=== PATIENT | male | born 2000 | race Caucasian/White ===

== ENCOUNTER 2022-11-19 14:14 | Outpatient (OUT) | payer OTHER, SELFPAY ==
--- NOTE | 2022-11-19 14:33 | XR_ITS ---
The [address] [address] Patient Name: ADÁN CARR MRN: [id number] date: 2000 Sex: M Assigned Patient Location: RAD Current Patient Location: RAD Accession/Order Number: [id number] Exam Date: 11/19/2022 14:33 Report Date: 11/19/2022 17:52 At the request of: MARIA L ABAD Procedure: XR ankle RT min 3V PROCEDURE: XR ankle RT min 3V, XR foot RT min 3V HISTORY: RIGHT ANKLE PAIN ; chronic right lateral ankle pain COMPARISON: XR ankle right 09/11/2022 FINDINGS: BONES:Persistent small lucency along lateral margin of talar dome. Otherwise no fracture, dislocation, or significant joint space narrowing. SOFT TISSUES:No visible soft tissue swelling. EFFUSION:None visible. OTHER: Negative. XR/XR ankle RT min 3V IMPRESSION: 1. Persistent lucency suspected to represent an osteochondral defect along lateral margin of the talar dome. Consider MRI for further evaluation. Electronically authenticated by: MONI PIKE Date: 11/19/2022 17:52
--- NOTE | 2022-11-19 14:33 | XR_ITS ---
The [address] [address] Patient Name: ADÁN CARR MRN: [id number] date: 2000 Sex: M Assigned Patient Location: RAD Current Patient Location: RAD Accession/Order Number: [id number] Exam Date: 11/19/2022 14:33 Report Date: 11/19/2022 17:52 At the request of: MARIA L ABAD Procedure: XR foot RT min 3V PROCEDURE: XR ankle RT min 3V, XR foot RT min 3V HISTORY: RIGHT ANKLE PAIN ; chronic right lateral ankle pain COMPARISON: XR ankle right 09/11/2022 FINDINGS: BONES:Persistent small lucency along lateral margin of talar dome. Otherwise no fracture, dislocation, or significant joint space narrowing. SOFT TISSUES:No visible soft tissue swelling. EFFUSION:None visible. OTHER: Negative. XR/XR foot RT min 3V IMPRESSION: 1. Persistent lucency suspected to represent an osteochondral defect along lateral margin of the talar dome. Consider MRI for further evaluation. Electronically authenticated by: MONI PIKE Date: 11/19/2022 17:52
== END 2022-11-19 14:15 | disposition home or self-care (01) ==
PROVIDERS: Visit Provider Podiatrist Foot & Ankle Surgery
DX: S93.491A Sprain of other ligament of right ankle, initial encounter (principal); S92.144A Nondisplaced dome fracture of right talus, initial encounter for closed fracture
CPT/HCPCS: 73610; 73630

== ENCOUNTER 2023-01-14 23:57 | Emergency (ER) | payer SELFPAY ==
[2023-01-14 23:59] VITALS: BP 156/93; PULSE 119; RESP 18; TEMP 36.9; O2SAT 98; BMI 43.6
--- NOTE | 2023-01-15 00:22 | ED.NAVMDI1 ---
HPI - Nausea/Vomiting/Diarrhea General Chief complaint: Nausea/Vomiting/Diarrhea Stated complaint: VOMITTING Time Seen by Provider: 01/15/23 00:18 Source: patient Mode of arrival: walk-in Limitations: no limitations History of Present Illness HPI Narrative: abdominal pain on and off for the past month. Points to the epigastric area and the LUQ as the site of the pain. Mother states pain triggered after eating. Was seen at [facility] [address] of the abdomen which mother states demonstrated a fatty liver. Pain again tonight with vomiting. Was prescribed Pepcid and zofran 2 days ago at [facility] which he states he has been taking. The pain is easing up again. No fever. States he has been passing his bowels MD elicited complaint: Reports nausea, vomiting and abdominal pain Related Data Allergies Allergy/AdvReac Type Severity Reaction Status Date / Time No Known Drug Allergies Allergy Verified 01/15/23 00:05 Review of Systems ROS Status of ROS 10 or more systems reviewed and unremarkable except as noted in history and below Exam Constitutional Vital Signs, click to edit/add: Last Vital Signs Temp 98.5 F 01/14/23 23:59 Pulse 119 H 01/14/23 23:59 Resp 18 01/14/23 23:59 BP 156/93 H 01/14/23 23:59 Pulse Ox 98 01/14/23 23:59 O2 Del Method Room Air 01/14/23 23:59 Common normals: no apparent distress, oriented x3, healthy appearing, alert and well nourished Eye Common normals: PERRL, EOMs intact bilaterally and conjunctivae normal Respiratory Common normals: normal respiratory effort, no retractions, no use of accessory muscles and clear to auscultation bilaterally Cardio Common normals: regular rate, regular rhythm, S1 normal heart sound and S2 normal heart sound GI Common normals: Normal to inspection, nondistended, normoactive bowel sounds present, soft to palpation and non-tender Extremity Common normals: normal to inspection and full ROM Neuro Common normals: oriented x3, CN's II-XII intact bilaterally, moves all extremities and no focal motor deficits Psych Appearance: grossly normal Course Vital Signs Vital signs: Vital Signs Temperature 98.5 F 01/14/23 23:59 Pulse Rate 119 H 01/14/23 23:59 Respiratory Rate 18 01/14/23 23:59 Blood Pressure 156/93 H 01/14/23 23:59 Pulse Oximetry 98 01/14/23 23:59 Oxygen Delivery Method Room Air 01/14/23 23:59 Temperature 98.5 F 01/14/23 23:59 Pulse Rate 119 H 01/14/23 23:59 Respiratory Rate 18 01/14/23 23:59 Blood Pressure 156/93 H 01/14/23 23:59 Pulse Oximetry 98 01/14/23 23:59 Oxygen Delivery Method Room Air 01/14/23 23:59 MDM - Nausea/Vomiting/Diarrhea MDM Narrative Medical decision making narrative: patient presents complaining of abdominal pain on and off for the past month. Pain again tonight associated with vomiting. No fever. CT a couple of days ago at [facility] demonstrated fatty liver. Exam today with mild epigastric and LUQ tenderness. No guarding. labs tonight with elevated WBC from vomiting. He is afebrile. LFTs with mild elevation of ALT which is equivocal to lab performed 2days ago at [facility] and likely related to his fatty liver. Patient's pain since arrival here is mild. Treated with zofran and bentyl and discharged home to follow up with his family doctor tomorrow where he is scheduled to be seen Lab Data Labs: Lab Results 01/15/23 Range/Units 00:10 WBC 15.7 H (4.0-11.0) 10^3/uL RBC 5.30 (4.70-6.10) 10^6/uL Hgb 16.0 (14.0-18.0) g/dL Hct 48.0 (42.0-54.0) % MCV 90.6 (80.0-94.0) fL MCH 30.2 (25.9-34.0) pg MCHC 33.3 (29.9-35.2) g/dL RDW 12.7 (11.0-15.0) % Plt Count 300 (150-450) 10^3/uL MPV 11.2 (9.5-13.5) fL Neut % (Auto) 64.5 (43.0-75.0) % Lymph % (Auto) 27.0 (20.5-60.0) % Hutchinson % (Auto) 5.8 (1.7-12.0) % Eos % (Auto) 1.7 (0.9-7.0) % Baso % (Auto) 0.6 (0.2-2.0) % Neut # (Auto) 10.1 H (1.4-6.5) 10^3/uL Lymph # (Auto) 4.2 H (1.2-3.8) 10^3/uL Hutchinson # (Auto) 0.9 H (0.3-0.8) 10^3/uL Eos # (Auto) 0.3 (0.0-0.7) 10^3/uL Baso # (Auto) 0.1 (0.0-0.1) 10^3/uL Abs Immat Gran (auto) 0.06 H (0.00-0.03) 10^3/uL Imm/Tot Granulo (auto) 0.4 (0.0-0.5) % Sodium 138 (136-145) mmol/L Potassium 3.6 (3.5-5.1) mmol/L Chloride 104 (98-107) mmol/L Carbon Dioxide 24.2 (21.0-32.0) mmol/L Anion Gap 13.4 BUN 25.0 H (7.0-18.0) mg/dL Creatinine 1.06 (0.70-1.30) mg/dL Est GFR ( Amer) >60 (>=60) Est GFR (Non-Af Amer) >60 (>=60) BUN/Creatinine Ratio 23.6 Glucose 116 H (74-106) mg/dL Lactate 1.3 (0.4-2.0) mmol/L Calcium 9.1 (8.5-10.1) mg/dL Total Bilirubin 0.5 (0.2-1.0) mg/dL AST 34 (15-37) U/L ALT 105 H (16-63) U/L Alkaline Phosphatase 78 (46-116) U/L Troponin I High Sens <4.0 L (4.0-76.1) pg/mL Total Protein 8.4 H (6.4-8.2) g/dL Albumin 3.9 (3.4-5.0) g/dL Globulin 4.5 g/dL Albumin/Globulin Ratio 0.9 Lipase 106.0 (73.0-393.0) U/L Discharge Plan Discharge Chief Complaint: Nausea/Vomiting/Diarrhea Clinical Impression: Abdominal pain Patient Disposition: Home, Self-Care Instructions: Abdominal Pain (ED) Additional Instructions: follow up with your doctor tomorrow as planned Stand Alone Forms: Portal Instructions Referrals: Physician,Non-Staff, MD [Physician] - 1 week
--- NOTE | 2023-01-15 00:27 | XR_ITS ---
The [address] [address] Patient Name: ADÁN CARR MRN: [id number] date: 2000 Sex: M Assigned Patient Location: ER Current Patient Location: ER Accession/Order Number: [id number] Exam Date: 01/15/2023 00:50 Report Date: 01/15/2023 01:20 At the request of: SHARON FAROOQ Procedure: XR acute abdomen series ACUTE ABDOMINAL SERIES WITH CHEST X-RAY HISTORY: Abdominal pain. Comparison: None. FINDINGS: The lungs are clear and the costophrenic angles are sharp. There is no infiltrate, effusion, or pneumothorax seen. There is air and stool seen scattered throughout the colon. There is no evidence for free air or air-fluid levels present. XR/XR acute abdomen series IMPRESSION: No acute cardiopulmonary disease. No evidence of obstruction or ileus. Electronically authenticated by: BIGG BOO Date: 01/15/2023 01:20
[2023-01-15] MEDS: 0.9 % SODIUM CHLORIDE 1,000 ML 999 ML IV (00:39)
[2023-01-15] MEDS: ONDANSETRON PF 4 MG/2 ML VIAL IV (00:39)
--- NOTE | 2023-01-15 00:40 | PC.NURSE ---
patient states he has had lower abdominal pain for past 3-5weeks. has been to [place] [facility] but states they did not find anything. patient states she has felt nauseous all day, last ate around 10 and began to throw up after that. states he has been having normal bowel movements. denies any other symptoms. patient is here with his mother who states she is concerned that the patient could have appendicitis because her other children had similar symptoms and were diagnosed with appendicitis. at this time patient state he does not have any abdominal pain but is nauseous.
[2023-01-15 01:11] LABS: Basophils Absolute Auto 0.1 10^3/uL (0.0-0.1); Basophils Percent Auto 0.6 % (0.2-2.0); Eosinophils Absolute Auto 0.3 10^3/uL (0.0-0.7); Eosinophils Percent Auto 1.7 % (0.9-7.0); Immature Granulocytes Abs Auto 0.06 10^3/uL (0.00-0.03); Immature Granulocytes Pct Auto 0.4 % (0.0-0.5); Lymphocytes Absolute Auto 4.2 10^3/uL (1.2-3.8); Mean Corpuscular HGB Conc 33.3 g/dL (29.9-35.2); Mean Corpuscular Hemoglobin 30.2 pg (25.9-34.0); Mean Corpuscular Volume 90.6 fL (80.0-94.0); Mean Platelet Volume 11.2 fL (9.5-13.5); Monocytes Absolute Auto 0.9 10^3/uL (0.3-0.8); Monocytes Percent Auto 5.8 % (1.7-12.0); Neutrophils Absolute Auto 10.1 10^3/uL (1.4-6.5); Neutrophils Percent Auto 64.5 % (43.0-75.0); Platelet Count 300 10^3/uL (150-450); Red Cell Distribution Width 12.7 % (11.0-15.0); White Blood Count 15.7 10^3/uL (4.0-11.0)
[2023-01-15 01:21] LABS: Lactate/Lactic Acid 1.3 mmol/L (0.4-2.0)
[2023-01-15 01:28] LABS: Alanine Aminotransferase 105 U/L (16-63); Albumin Globulin Ratio 0.9; Albumin Level 3.9 g/dL (3.4-5.0); Alkaline Phosphatase 78 U/L (46-116); Anion Gap 13.4; Aspartate Amino Transferase 34 U/L (15-37); BUN Creatinine Ratio 23.6; Bilirubin Total 0.5 mg/dL (0.2-1.0); Calcium 9.1 mg/dL (8.5-10.1); Carbon Dioxide 24.2 mmol/L (21.0-32.0); Chloride 104 mmol/L (98-107); Estimated GFR (African America >60 (>=60); Estimated GFR (Non-African Ame >60 (>=60); Globulin 4.5 g/dL; Glucose 116 mg/dL (74-106); Potassium 3.6 mmol/L (3.5-5.1); Sodium 138 mmol/L (136-145); Total Protein 8.4 g/dL (6.4-8.2); Troponin I High Sensitivity <4.0 pg/mL (4.0-76.1)
[2023-01-15] MEDS: DICYCLOMINE HCL 20 MG/2 ML VIAL IM (01:59)
== END 2023-01-15 02:07 | disposition home or self-care (01) ==
PROVIDERS: Emergency Provider Internal Medicine
DX: R10.9 Unspecified abdominal pain (principal)
CPT/HCPCS: 36415; 74022; 80053; 83605; 83690; 84484; 85025; 96361; 96372; 96374; 99285; J0500

== ENCOUNTER 2023-08-14 20:09 | Emergency (ER) | payer SELFPAY ==
[2023-08-14 20:12] VITALS: BP 131/81; PULSE 86; TEMP 36.6; O2SAT 97; BMI 45.0
[2023-08-14] MEDS: KETOROLAC TROMETHAMINE 30 MG/ML VIAL IVP (20:45)
[2023-08-14] MEDS: 0.9 % SODIUM CHLORIDE 1,000 ML 999 ML IV (20:45)
[2023-08-14] MEDS: ONDANSETRON PF 4 MG/2 ML VIAL IV (20:45)
--- NOTE | 2023-08-14 20:50 | ED_ITS ---
Documented by User: Sera Meyers 08/15/23 14:34 HPI - Abdominal Pain General Chief Complaint: Abdominal Pain Stated Complaint: abd pain Time Seen by Provider: 08/14/23 20:13 Source: patient Mode of arrival: walk-in Limitations: no limitations History of Present Illness HPI narrative: 22-year-old male presents with chief complaint of generalized abdominal pain with nausea. pt denies vomiting but states had loose stool yesterday. pt is currently afebrile. pt was seen here for same symptoms in jan. pt was told he had fatty liver. pt denies follow up. he states pain is diffuse and more in the left upper quadrant. pt abdomen is soft and nontender to palpation on initial exam. pt denies taking any medication and denies any follow up since previous visit here in dept. Related Data Previous Rx's ?Medication ?Instructions ?Recorded famotidine 20 mg tablet (Pepcid) 20 mg PO BID 6 weeks #84 tabs 08/14/23 metoclopramide HCl 10 mg tablet 10 mg PO Q6H PRN nausea and 08/14/23 vomiting #90 tabs Allergies Allergy/AdvReac Type Severity Reaction Status Date / Time No Known Drug Allergies Allergy Verified 08/14/23 20:19 Review of Systems ROS Narrative All Systems are negative except as noted/marked.All systems reviewed and otherwise negative Exam Narrative Exam Narrative: Nurses note and vital signs reviewed and patient is not hypoxic. General: The patient appears well and in no apparent distress. Patient is resting comfortably on cart. Skin: Warm, dry, no pallor noted. There is no rash noted. Head: Normocephalic, atraumatic Eye: Normal conjunctiva, no drainage, EOMI. PERRL Ears, Nose, Mouth, and Throat: oral mucosa is moist. Nares patent. Mouth without vesicles. Ear canals patent. Tm's without Erythema Cardiovascular: Regular Rate and Rhythm Respiratory: Patient is in no distress, no accessory muscle use, lungs are clear to auscultation, no wheezing, rales or rhonchi Back: non-tender, no CVA tenderness bilaterally to percussion. GI: Normal bowel sounds, no tenderness to palpation, no masses appreciated. No rebound, guarding, or rigidity noted. Musculoskeletal: No acute abnormalities upper and lower extremity, strength within normal Neurological: A&O x3 Psychiatric: Cooperative Constitutional Vital Signs, click to edit/add: Last Vital Signs Temp 97.8 F 08/14/23 20:12 Pulse 86 08/14/23 20:12 Resp 18 08/14/23 20:12 BP 131/81 08/14/23 20:12 Pulse Ox 97 08/14/23 20:12 O2 Del Method Room Air 08/14/23 20:12 Course Vital Signs Vital signs: Vital Signs Temperature 97.8 F 08/14/23 20:12 Pulse Rate 86 08/14/23 20:12 Respiratory Rate 18 08/14/23 20:12 Blood Pressure 131/81 08/14/23 20:12 Pulse Oximetry 97 08/14/23 20:12 Oxygen Delivery Method Room Air 08/14/23 20:12 Temperature 97.8 F 08/14/23 20:12 Pulse Rate 86 08/14/23 20:12 Respiratory Rate 18 08/14/23 20:12 Blood Pressure 131/81 08/14/23 20:12 Pulse Oximetry 97 08/14/23 20:12 Oxygen Delivery Method Room Air 08/14/23 20:12 MDM - Abdominal Pain MDM Narrative Medical decision making narrative: Chief complaint generalized abdominal pain. Known history of fatty liver. upon arrival, IV was established patient was given fluids and zofran. labs and xray are currently pending. transfer of care to Dr Hernandez. Differential Diagnosis Differential diagnosis: Likely abdominal pain, constipation and gastroenteritis Medical Records Attestation: I reviewed the patient's medical records. Lab Data Attestation: I reviewed the patient's lab results. Labs: Lab Results 08/14/23 Range/Units 20:35 WBC 11.8 H (4.0-11.0) 10^3/uL RBC 5.66 (4.70-6.10) 10^6/uL Hgb 17.0 (14.0-18.0) g/dL Hct 51.2 (42.0-54.0) % MCV 90.5 (80.0-94.0) fL MCH 30.0 (25.9-34.0) pg MCHC 33.2 (29.9-35.2) g/dL RDW 12.7 (11.0-15.0) % Plt Count 266 (150-450) 10^3/uL MPV 11.1 (9.5-13.5) fL Neut % (Auto) 70.3 (43.0-75.0) % Lymph % (Auto) 21.5 (20.5-60.0) % Bulloch % (Auto) 5.9 (1.7-12.0) % Eos % (Auto) 1.4 (0.9-7.0) % Baso % (Auto) 0.7 (0.2-2.0) % Neut # (Auto) 8.3 H (1.4-6.5) 10^3/uL Lymph # (Auto) 2.5 (1.2-3.8) 10^3/uL Bulloch # (Auto) 0.7 (0.3-0.8) 10^3/uL Eos # (Auto) 0.2 (0.0-0.7) 10^3/uL Baso # (Auto) 0.1 (0.0-0.1) 10^3/uL Abs Immat Gran (auto) 0.02 (0.00-0.03) 10^3/uL Imm/Tot Granulo (auto) 0.2 (0.0-0.5) % Sodium 137 (136-145) mmol/L Potassium 4.0 (3.5-5.1) mmol/L Chloride 100 (98-107) mmol/L Carbon Dioxide 26.0 (21.0-32.0) mmol/L Anion Gap 15.0 BUN 14.0 (7.0-18.0) mg/dL Creatinine 0.90 (0.70-1.30) mg/dL Est GFR ( Amer) >60 (>=60) Est GFR (Non-Af Amer) >60 (>=60) BUN/Creatinine Ratio 15.6 Glucose 100 (74-106) mg/dL Calcium 9.6 (8.5-10.1) mg/dL Total Bilirubin 1.0 (0.2-1.0) mg/dL AST 53 H (15-37) U/L ALT 134 H (16-63) U/L Alkaline Phosphatase 78 (46-116) U/L Total Protein 8.8 H (6.4-8.2) g/dL Albumin 4.1 (3.4-5.0) g/dL Globulin 4.7 g/dL Albumin/Globulin Ratio 0.9 Lipase 28.0 (16.0-77.0) U/L Imaging Data Abdominal x-ray: Radiologist's impression: ITS Impressions Abdomen X-Ray 08/14/23 20:53 IMPRESSION: No acute abdominal pathology. Electronically authenticated by: MALAIKA DE LOS SANTOS Date: 08/14/2023 22:04 Discharge Plan Discharge Stand Alone Forms: Portal Instructions Chief Complaint: Abdominal Pain Clinical Impression: Gastritis, Abdominal pain Patient Disposition: Home, Self-Care Time of Disposition Decision: 21:26 Prescriptions / Home Meds: New metoclopramide HCl 10 mg tablet 10 mg PO Q6H PRN (Reason: nausea and vomiting) Qty: 90 0RF famotidine [Pepcid] 20 mg tablet 20 mg PO BID 42 Days Qty: 84 0RF Print Language: Hebrew Instructions: Gastritis (ED), Clear Liquid Diet (ED), Abdominal Pain (ED) Referrals: [facility] [Primary Care Provider] - 1 week Discharge Date/Time: 08/14/23 21:52 Documented by User: Renato Hernandez 08/14/23 21:28 HPI - Abdominal Pain General Chief Complaint: Abdominal Pain Stated Complaint: abd pain Time Seen by Provider: 08/14/23 20:13 Related Data Previous Rx's ?Medication ?Instructions ?Recorded famotidine 20 mg tablet (Pepcid) 20 mg PO BID 6 weeks #84 tabs 08/14/23 metoclopramide HCl 10 mg tablet 10 mg PO Q6H PRN nausea and 08/14/23 vomiting #90 tabs Allergies Allergy/AdvReac Type Severity Reaction Status Date / Time No Known Drug Allergies Allergy Verified 08/14/23 20:19 Exam Constitutional Vital Signs, click to edit/add: Last Vital Signs Temp 97.8 F 08/14/23 20:12 Pulse 86 08/14/23 20:12 Resp 18 08/14/23 20:12 BP 131/81 08/14/23 20:12 Pulse Ox 97 08/14/23 20:12 O2 Del Method Room Air 08/14/23 20:12 Course Vital Signs Vital signs: Vital Signs Temperature 97.8 F 08/14/23 20:12 Pulse Rate 86 08/14/23 20:12 Respiratory Rate 18 08/14/23 20:12 Blood Pressure 131/81 08/14/23 20:12 Pulse Oximetry 97 08/14/23 20:12 Oxygen Delivery Method Room Air 08/14/23 20:12 Temperature 97.8 F 08/14/23 20:12 Pulse Rate 86 08/14/23 20:12 Respiratory Rate 18 08/14/23 20:12 Blood Pressure 131/81 08/14/23 20:12 Pulse Oximetry 97 08/14/23 20:12 Oxygen Delivery Method Room Air 08/14/23 20:12 MDM - Abdominal Pain MDM Narrative Medical decision making narrative: Chief complaint generalized abdominal pain. Known history of fatty liver. upon arrival, IV was established patient was given fluids and zofran. labs and xray are currently pending. transfer of care to Dr Hernandez. For this patient encounter I reviewed the mid-level provider?s documentation, medical decision-making and treatment plan, and I personally spent time with this patient. Shared APC visit, physician attestation: [id number]: This visit was performed by both a physician and an APC. I personally evaluated and examined the patient. I performed all aspects of MDM as documented. I saw and examined the patient. He has focal tenderness in the left upper quadrant. He does not have a surgical abdomen. In talking with him he has been experiencing symptoms for the last 12 months. He previously had insurance through [employer] but does not currently have insurance which is why he cannot get adequate follow-up. His mother used to carry him under her insurance policy but she has not inquired to see whether or not she could add him back again. In the meantime he has been awaiting Medicaid approval and has not been able to get in and see anybody for follow-up. Instead he has been going to [place] emergency department and now is back to [place] for his fifth ED visit in the last 7 months. The patient's blood testing and x-rays were unremarkable. He has symptoms consistent with gastritis. He has not been previously prescribed anything from [place] emergency department and he ran out of his prescriptions he received from Dr. Gorman in January with his [place] visit. We talked about clear liquid diet with advancement to soft bland foods and the return to clear liquid diet if his symptoms returned. He was discharged home with prescription for pepcid and reglan - [facility] can [facility] and get 90 day supply of reglan for $10 and pepcid is available OTC. - DO Jesus Lab Data Labs: Lab Results 08/14/23 Range/Units 20:35 WBC 11.8 H (4.0-11.0) 10^3/uL RBC 5.66 (4.70-6.10) 10^6/uL Hgb 17.0 (14.0-18.0) g/dL Hct 51.2 (42.0-54.0) % MCV 90.5 (80.0-94.0) fL MCH 30.0 (25.9-34.0) pg MCHC 33.2 (29.9-35.2) g/dL RDW 12.7 (11.0-15.0) % Plt Count 266 (150-450) 10^3/uL MPV 11.1 (9.5-13.5) fL Neut % (Auto) 70.3 (43.0-75.0) % Lymph % (Auto) 21.5 (20.5-60.0) % Bulloch % (Auto) 5.9 (1.7-12.0) % Eos % (Auto) 1.4 (0.9-7.0) % Baso % (Auto) 0.7 (0.2-2.0) % Neut # (Auto) 8.3 H (1.4-6.5) 10^3/uL Lymph # (Auto) 2.5 (1.2-3.8) 10^3/uL Bulloch # (Auto) 0.7 (0.3-0.8) 10^3/uL Eos # (Auto) 0.2 (0.0-0.7) 10^3/uL Baso # (Auto) 0.1 (0.0-0.1) 10^3/uL Abs Immat Gran (auto) 0.02 (0.00-0.03) 10^3/uL Imm/Tot Granulo (auto) 0.2 (0.0-0.5) % Sodium 137 (136-145) mmol/L Potassium 4.0 (3.5-5.1) mmol/L Chloride 100 (98-107) mmol/L Carbon Dioxide 26.0 (21.0-32.0) mmol/L Anion Gap 15.0 BUN 14.0 (7.0-18.0) mg/dL Creatinine 0.90 (0.70-1.30) mg/dL Est GFR ( Amer) >60 (>=60) Est GFR (Non-Af Amer) >60 (>=60) BUN/Creatinine Ratio 15.6 Glucose 100 (74-106) mg/dL Calcium 9.6 (8.5-10.1) mg/dL Total Bilirubin 1.0 (0.2-1.0) mg/dL AST 53 H (15-37) U/L ALT 134 H (16-63) U/L Alkaline Phosphatase 78 (46-116) U/L Total Protein 8.8 H (6.4-8.2) g/dL Albumin 4.1 (3.4-5.0) g/dL Globulin 4.7 g/dL Albumin/Globulin Ratio 0.9 Lipase 28.0 (16.0-77.0) U/L Imaging Data Abdominal x-ray: Attestation: I personally reviewed and interpreted this imaging study as follows: My impression: NAD Radiologist's impression: ITS Impressions Abdomen X-Ray 08/14/23 20:53
[2023-08-14 20:52] LABS: Basophils Absolute Auto 0.1 10^3/uL (0.0-0.1); Basophils Percent Auto 0.7 % (0.2-2.0); Eosinophils Absolute Auto 0.2 10^3/uL (0.0-0.7); Eosinophils Percent Auto 1.4 % (0.9-7.0); Hematocrit 51.2 % (42.0-54.0); Immature Granulocytes Abs Auto 0.02 10^3/uL (0.00-0.03); Immature Granulocytes Pct Auto 0.2 % (0.0-0.5); Lymphocytes Absolute Auto 2.5 10^3/uL (1.2-3.8); Lymphocytes Percent Auto 21.5 % (20.5-60.0); Mean Corpuscular HGB Conc 33.2 g/dL (29.9-35.2); Mean Corpuscular Volume 90.5 fL (80.0-94.0); Mean Platelet Volume 11.1 fL (9.5-13.5); Monocytes Absolute Auto 0.7 10^3/uL (0.3-0.8); Monocytes Percent Auto 5.9 % (1.7-12.0); Neutrophils Absolute Auto 8.3 10^3/uL (1.4-6.5); Neutrophils Percent Auto 70.3 % (43.0-75.0); Platelet Count 266 10^3/uL (150-450); Red Blood Count 5.66 10^6/uL (4.70-6.10); Red Cell Distribution Width 12.7 % (11.0-15.0); White Blood Count 11.8 10^3/uL (4.0-11.0)
--- NOTE | 2023-08-14 20:53 | XR_ITS ---
The [place] [id number] Patient Name: ADÁN CARR MRN: [id number] date: 2000 Sex: M Assigned Patient Location: ER Current Patient Location: Accession/Order Number: [id number] Exam Date: 08/14/2023 21:07 Report Date: 08/14/2023 22:04 At the request of: TAN GOMEZ Procedure: XR abdomen 1V EXAM: XR abdomen 1V TECHNIQUE: Supine view abdomen HISTORY: pain COMPARISON: 01/15/2023 FINDINGS: No evidence for bowel obstruction. No evidence for free intraperitoneal air. No abnormal abdominal calcifications. No acute osseous abnormality. XR/XR abdomen 1V IMPRESSION: No acute abdominal pathology. Electronically authenticated by: MALAIKA DE LOS SANTOS Date: 08/14/2023 22:04
[2023-08-14 21:04] LABS: Alanine Aminotransferase 134 U/L (16-63); Albumin Globulin Ratio 0.9; Albumin Level 4.1 g/dL (3.4-5.0); Alkaline Phosphatase 78 U/L (46-116); Aspartate Amino Transferase 53 U/L (15-37); BUN Creatinine Ratio 15.6; Calcium 9.6 mg/dL (8.5-10.1); Chloride 100 mmol/L (98-107); Estimated GFR (African America >60 (>=60); Estimated GFR (Non-African Ame >60 (>=60); Globulin 4.7 g/dL; Glucose 100 mg/dL (74-106); Sodium 137 mmol/L (136-145); Total Protein 8.8 g/dL (6.4-8.2)
== END 2023-08-14 21:52 | disposition home or self-care (01) ==
PROVIDERS: Physician Assistant; Emergency Provider Emergency Medicine
DX: K29.70 Gastritis, unspecified, without bleeding (principal); R10.9 Unspecified abdominal pain; K76.0 Fatty (change of) liver, not elsewhere classified
CPT/HCPCS: 36415; 74018; 80053; 83690; 85025; 96374; 96375; 99285